=== PATIENT | male | born 1965 | race Caucasian/White ===

== ENCOUNTER 2017-11-04 14:56 | Observation (INO) | payer BC ==
[~2017-11-04] VITALS: Ht 177.8 cm; Wt 84.1 kg
[2017-11-04] MEDS ORDERED: SODIUM CHLORIDE 0.9% 1,000 ML IV SCH (15:08)
[2017-11-04 15:11] VITALS: BP 161/107
[2017-11-04] MEDS ORDERED: LIDOCAINE 2%, 20ML ONE (15:15)
[2017-11-04] MEDS ORDERED: CEFAZOLIN 1,000 MG ONE (15:15)
[2017-11-04] MEDS ORDERED: FENTANYL PF 100 MCG/2ML ONE (15:15)
[2017-11-04] MEDS ORDERED: CEFAZOLIN PMX 1GM/50ML 50 ML ONE (15:15)
[2017-11-04] MEDS ORDERED: MIDAZOLAM 1 MG/ML, 5ML ONE (15:15)
[2017-11-04] MEDS ORDERED: ATOR40TA78 PO (15:25)
[2017-11-04] MEDS ORDERED: ASPI-621 PO (15:25)
[2017-11-04] MEDS ORDERED: AMIO100T4 PO (15:25)
[2017-11-04] MEDS ORDERED: CARV6.252 PO (15:25)
[2017-11-04] MEDS ORDERED: NITR0.4T SL (15:25)
[2017-11-04] MEDS ORDERED: CEFAZOLIN PMX 1GM/50ML 50 ML IVPB ONE (15:30)
[2017-11-04] MEDS ORDERED: FLU VACC QS2017-18 (36MOS+) UP/PF 0.5 ML IM-VACC ONE (18:30)
[2017-11-04] MEDS ORDERED: PNEUMOCOCCAL 23 VACCINE IM-VACC ONE (18:30)
[2017-11-04] MEDS ORDERED: SODIUM CHLORIDE FLUSH 10ML SYR IVF SCH (21:00)
== END 2017-11-04 20:02 | disposition home or self-care (01) ==
LOC: CACL 14:56 → ORIP 16:23 → 5SO 16:28
PROVIDERS: ADMIT Internal Medicine Cardiovascular Disease; ATTEND Internal Medicine Cardiovascular Disease
DX: T82.191A Other mechanical complication of cardiac pulse generator (battery), initial encounter (principal); I49.02 Ventricular flutter; I25.10 Atherosclerotic heart disease of native coronary artery without angina pectoris; I25.5 Ischemic cardiomyopathy; Y71.8 Miscellaneous cardiovascular devices associated with adverse incidents, not elsewhere classified; Y92.89 Other specified places as the place of occurrence of the external cause; Z95.810 Presence of automatic (implantable) cardiac defibrillator; Z23 Encounter for immunization
CPT/HCPCS: 33262; 90471; 90472; 90686; 90732; 99156; 99157; C1722; G0378; J0690; J2250; J3010; J3490